=== PATIENT | female | born 1990 | race Caucasian/White ===

== ENCOUNTER 2016-10-17 21:24 | Emergency (ER) | payer MEDICAID, OTHER ==
[~2016-10-17] VITALS: Ht 160 cm; Wt 83.0 kg
[2016-10-17 21:31] VITALS: Ht 160 cm; Wt 83.0 kg
--- NOTE | 2016-10-17 22:23 | ERD ---
ER Documentation Chief Complaint Date/Time DATE: 10/17/16 TIME: 22:21 Chief Complaint 5 weeks , vag bleeding since last night HPI 26-year-old female presents here in emergency department for complaints of vaginal bleeding started last night, describes the bleeding as spotting. Patient 's approximately 5 weeks . LMP 08/18/2016. Patient is complaining of pelvic a, cramping pain, for/10 scale, accompanying the symptoms. Is 2 para 0 0. Patient denies hematuria or dysuria. Patient denies any fever or chills. Patient denies any fever or chills. Patient denies any nausea or vomiting. ROS All systems reviewed and are negative except as per history of present illness. Medications Home Meds Active Scripts Acetaminophen* (Tylophen*) 500 Mg Capsule, 1 CAP PO Q6H Y for PAIN AND OR ELEVATED TEMP, #20 CAP Prov:BENEDICT VALDEZ WALLCOVERING TEXTURER 10/18/16 Cephalexin* (Keflex*) 500 Mg Capsule, 500 MG PO QID for 5 Days, CAP Prov:BENEDICT VALDEZ W[employer]COVERING TEXTURER 10/18/16 Reported Medications [none] Unknown Strength No Conflict Check 10/17/16 Allergies Allergies: Coded Allergies: No Known Allergy (Unverified , 10/17/16) PMhx/Soc Medical and Surgical Hx: pt denies Medical Hx, pt denies Surgical Hx Hx Alcohol Use: No Hx Substance Use: No Hx Tobacco Use: No FmHx Family History: No coronary disease, No diabetes, No other Physical Exam Vitals Vital Signs Date Time Temp Pulse Resp B/P Pulse Ox O2 Delivery O2 Flow Rate FiO2 10/17/16 21:31 97.6 71 20 122/80 100 Physical Exam GENERAL: The patient is well developed and appropriate for usual state of health, in no apparent distress. CHEST: Clear to auscultation bilaterally. There are no rales, wheezes or rhonchi. HEART: Regular rate and rhythm. No murmurs, clicks, rubs or gallops. No S3 or S4. ABDOMEN: Soft, nontender and nondistended. Good bowel sounds. No rebound or guarding. No gross peritonitis. No gross organomegaly or masses. No Rodney sign or McBurney point tenderness. BACK: No midline or flank tenderness. EXTREMITIES: Equal pulses bilaterally. There is no peripheral clubbing, cyanosis or edema. No focal swelling or erythema. Full range of motion. Grossly neurovascularly intact. NEURO: Alert and oriented. Cranial nerves 2-12 intact. Motor strength in all 4 extremities with 5/5 strength. Sensation grossly intact. Normal speech and gait. SKIN: There is no apparent rash or petechia. The skin is warm and dry. HEMATOLOGIC AND LYMPHATIC: There is no evidence of excessive bruising or lymphedema. No gross cervical, axillary, or inguinal lymphadenopathy. : Small amount of blood in the vaginal vault, no cervical motion tenderness or adnexal tenderness noted. Cervical os is closed Result Diagram: 10/17/160 Results 24 hrs Laboratory Tests Test 10/17/16 21:42 10/17/16 22:00 Urine Color LT. YELLOW Urine Clarity SLIGHTLY CLOUDY Urine pH 6.0 Urine Specific [place] >=1.030 Urine Ketones NEGATIVE Urine Nitrite NEGATIVE Urine Bilirubin NEGATIVE Urine Urobilinogen 0.2 E.U./dL Urine Leukocyte Esterase 1+ Urine Microscopic RBC 5-10/HPF Urine Microscopic WBC 5-10/HPF Urine Squamous Epithelial Cells MODERATE Urine Bacteria FEW Urine Hemoglobin 2+ Urine Glucose NEGATIVE% Urine Total Protein NEGATIVE White Blood Count 5.810^3/ul Red Blood Count 4.5910^6/ul Hemoglobin 11.4g/dl Hematocrit 36.9% Mean Corpuscular Volume 80.4fl Mean Corpuscular Hemoglobin 24.8pg Mean Corpuscular Hemoglobin Concent 30.9g/dl Red Cell Distribution Width 13.7% Platelet Count 93495^3/UL Mean Platelet Volume 10.2fl Neutrophils % 45.1% Lymphocytes % 44.9% Monocytes % 7.9% Eosinophils % 1.4% Basophils % 0.5% Nucleated Red Blood Cells % 0.0/100WBC Neutrophils # 2.610^3/ul Lymphocytes # 2.610^3/ul Monocytes # 0.510^3/ul Eosinophils # 0.110^3/ul Basophils # 0.010^3/ul Nucleated Red Blood Cells # 0.010^3/ul Beta HCG, Quantitative 86296.0mIU/ml PROCEDURE: ULTRASOUND OBSTETRICAL CLINICAL INDICATION: 26-year-old female with vaginal bleeding. TECHNIQUE: Multiple sonographic images of the pelvis were obtained. The images were reviewed on a PACS workstation. COMPARISON: None. FINDINGS: There is a focal area of abnormal echogenicity within the uterus measuring 2.9 x 3.4 x 2.7 cm suggestive of a fibroid. There is a single intrauterine gestation. The mean sac diameter is 1.17 cm. There is a pole present with a crown-rump length of 0.46 cm. This yields an estimated gestational age of 6 weeks and 0 days. The estimated date of delivery is June 12, 2017. Cardiac activity is present at 121 beats per minute. There is no evidence for free fluid. The right ovary was not visualized. The left ovary has a normal echotexture and measures 3.4 x 2.1 x 2.6 cm. There is normal flow to the left ovary No adnexal masses are noted. IMPRESSION: 1. Single viable intrauterine gestation of approximately 6 weeks 0 days. The estimated date of delivery is June 12, 2017. 2. Probable uterine fibroid. 3. The right ovary was not visualized. .Macriano Iniguez MD, MD Date Time Electronically viewed and signed by .Marciano Iniguez MD, MD on 10/17/2016 23:39 .M/ CC: BENEDICT VALDEZ W[employer]COVERING TEXTURER Procedures/MDM Medical Decision Making: Patients vaginal bleeding is most likely consistent of possible threatened . Patient also has a uterine fibroid may be causing also the symptoms. Patient does not show any evidence of hypovolemic shock. Patients hemoglobin and hematocrit is stable. There is low suspicion for ectopic . PREM results show a viable at 6 weeks with uterine fibroid BetaHCG Quantitative is appropriate for The patient is Rh+, does not need RhoGAM this time. There is no signs of symptoms of dehydration. There is low suspicion for sepsis. Patient appears well and is hemodynamically stable. She also has urinary tract infection and will be treated. No symptoms of pyelonephritis. Disposition: Home. Condition: Stable Restriction: Keflex, Tylenol Instructions: Patient is advised to do bed rest, avoid heavy lifting, and avoid having sex until cleared by OB doctor. Patient is advised to follow up with OB doctor or here at the ER in 48 hours for reevaluation of symptoms, repeat beta HCG quantitative and ultrasound. Patient is advised that is symptoms are worst, severe bleeding, dizziness, severe abdominal pain, fever, worst signs and symptoms to return to the emergency department immediately. Departure Diagnosis: Primary Impression: Vaginal bleeding Additional Impressions: UTI (urinary tract infection) Urinary tract infection type: acute cystitis Hematuria presence: without hematuria Qualified Code: N30.00 - Acute cystitis without hematuria Uterine fibroid Uterine leiomyoma location: unspecified location Qualified Code: D25.9 - Uterine leiomyoma, unspecified location Intrauterine Condition: Stable Patient Instructions: Understanding Urinary Tract Infections (UTIs), Uterine Fibroids, Vaginal Bleed in Additional Instructions: Patient is advised to do bed rest, avoid heavy lifting, and avoid having sex until cleared by OB doctor. Patient is advised to follow up with OB doctor or here at the ER in 48 hours for reevaluation of symptoms, repeat beta HCG quantitative and ultrasound. Patient is advised that is symptoms are worst, severe bleeding, dizziness, severe abdominal pain, fever, worst signs and symptoms to return to the emergency department immediately. BENEDICT VALDEZ NP Oct 17, 2016 22:23
[2016-10-17 23:01] LABS: ADD SCAN DIFF NO
[2016-10-17 23:05] LABS: BASOPHILS % 0.5 % (0.0-2.0); EOSINOPHILS # 0.1 10^3/ul (0.0-0.5); EOSINOPHILS % 1.4 % (0.0-7.0); HEMATOCRIT 36.9 % (37.0-47.0); HEMOGLOBIN 11.4 g/dl (12.0-16.0); LYMPHOCYTES # 2.6 10^3/ul (0.8-2.9); LYMPHOCYTES % 44.9 % (15.0-51.0); MEAN CORPUSCULAR HEMOGLOBIN 24.8 pg (29.0-33.0); MEAN CORPUSCULAR HGB CONC 30.9 g/dl (32.0-37.0); MEAN CORPUSCULAR VOLUME 80.4 fl (82.0-101.0); MEAN PLATELET VOLUME 10.2 fl (7.4-10.4); MONOCYTE # 0.5 10^3/ul (0.3-0.9); MONOCYTES % 7.9 % (0.0-11.0); NEUTROPHIL # 2.6 10^3/ul (1.6-7.5); NEUTROPHILS % 45.1 % (39.0-77.0); PLATELET COUNT 388 10^3/UL (140-415); RED BLOOD COUNT 4.59 10^6/ul (4.20-5.40); RED CELL DISTRIBUTION WIDTH 13.7 % (11.5-14.5); WHITE BLOOD COUNT 5.8 10^3/ul (4.8-10.8)
[2016-10-17 23:08] LABS: ADD UMIC YES; URINE BILIRUBIN (Dip) NEGATIVE (NEGATIVE); URINE BLOOD (Dip) 2+ (NEGATIVE); URINE COLOR LT. YELLOW (YELLOW); URINE GLUCOSE (Dip) NEGATIVE (NEGATIVE); URINE KETONES (Dip) NEGATIVE (NEGATIVE); URINE LEUKOCYTE ESTERASE (Dip) 1+ (NEGATIVE); URINE NITRITE (Dip) NEGATIVE (NEGATIVE); URINE TOTAL PROTEIN (Dip) NEGATIVE (NEGATIVE); URINE UROBILINOGEN (Dip) 0.2 E.U./dL (0.1-1.0)
[2016-10-17 23:19] LABS: SQUAMOUS EPITHELIAL CELL,UR MODERATE
[2016-10-17 23:20] LABS: BACTERIA,URINE FEW
--- NOTE | 2016-10-17 23:39 | RADRPT ---
PROCEDURE: ULTRASOUND OBSTETRICAL CLINICAL INDICATION: 26-year-old female with vaginal bleeding. TECHNIQUE: Multiple sonographic images of the pelvis were obtained. The images were reviewed on a PACS workstation. COMPARISON: None. FINDINGS: There is a focal area of abnormal echogenicity within the uterus measuring 2.9 x 3.4 x 2.7 cm sugges tive of a fibroid. There is a single intrauterine gestation. The mean sac diameter is 1.17 cm. The re is a pole present with a crown-rump length of 0.46 cm. This yields an estimated gestational age of 6 weeks and 0 days. The estimated date of delivery is June 12, 2017. Cardiac activity is present at 121 beats per minute. There is no evidence for free fluid. The right ovary was not visu alized. The left ovary has a normal echotexture and measures 3.4 x 2.1 x 2.6 cm. There is normal skyla w to the left ovary No adnexal masses are noted. IMPRESSION: 1. Single viable intrauterine gestation of approximately 6 weeks 0 days. The estimated date of del nahum is June 12, 2017. 2. Probable uterine fibroid. 3. The right ovary was not visualized. .Marciano Iniguez MD, MD Date Time Electronically viewed and signed by .Marciano Iniguez MD, on 10/17/2016 23:39 .M/
[2016-10-18] MEDS ORDERED: ACET500C5 PO (00:18)
[2016-10-18] MEDS ORDERED: CEPH-443 PO (00:18)
[2016-10-18 00:32] VITALS: BP 106/59; PULSE 63; RESP 16; TEMP 98.3
== END 2016-10-18 00:33 | disposition home or self-care (01) ==
LOC: FTE 21:24
DX: O20.9 Hemorrhage in early pregnancy, unspecified (principal); O23.41 Unspecified infection of urinary tract in pregnancy, first trimester; O34.11 Maternal care for benign tumor of corpus uteri, first trimester; R10.2 Pelvic and perineal pain; Z3A.01 Less than 8 weeks gestation of pregnancy
CPT/HCPCS: 36415; 76801; 81001; 81003; 84702; 85025; 86900; 86901; Z7502

== ENCOUNTER 2017-05-24 17:27 | Inpatient (IN) | payer MEDICAID ==
[~2017-05-24] VITALS: Ht 160 cm; Wt 97.7 kg
[~2017-05-24 17:27] MED LIST: ACET500C5 PO; CEPH-443 PO
[2017-05-24] MEDS: LACTATED RINGER'S 1,000 ML IV SCH ×3 (18:01→21:50)
[2017-05-24] MEDS ORDERED: LACTATED RINGER'S 1,000 ML IV ONE (20:00)
--- NOTE | 2017-05-24 20:45 | RADRPT ---
PROCEDURE: Obstetrical ultrasound for biophysical profile CLINICAL INDICATION: Biophysical profile. . TECHNIQUE: Obstetrical ultrasound of the uterus for biophysical profile. Transabdominal views are obtained. COMPARISON: 05/24/2017 FINDINGS: Single intrauterine gestation. Presentation: Cephalic. Placenta: Anterior. No evidence of placental abruption. No evidence of placenta previa. Small placental leak noted. breathing movement = 2/2 tone = 2/2 motion = 2/2 AVERY = 2/2 AVERY = 6 cm heart rate: 124 beats per minute IMPRESSION: Single intrauterine gestation. Biophysical profile 02/22 RPTAT: AADD .Garo Crawford MD, MD Date Time Electronically viewed and signed by .Garo Crawford MD, on 05/24/2017 20:45 .B/
--- NOTE | 2017-05-24 20:59 | HP ---
Date/Time of Note Date/Time of Note DATE: 05/24/17 TIME: 20:45 OB - History Hx of Present Free Text/Dictation 27y.o at 37w3d were sent for BPP and AVERY for oligohydramnios during APT at triage AVERY 6.8 BPP /8 rechecked after IV hudration AVERY still 6 Her OB requested to admit the patient of IOL by cervidil known to have submucosal leiomyoma on may 06 ultrasound at which showed efw 19% AC only 10% AVERY 11.1 Chief Complaint: low AVERY for IOL Estimated Due Date: Jun 11, 2017 : 2 Para: 0 Spontaneous : 0 Therapeutic : 0 Care: Good Care Ultrasounds: Normal mid trimester US Medical Complications: Genitourinary (submucous myoma) Past Family/Social History * Past Medical, Surgical, Family and Obstetric Histories reviewed from chart. Blood Type: B+ Rubella: immune RPR/VDRL: Negative GBS Status: Unknown HBsAG: Negative OB Admission Exam Physical Exam HEENT: WNL Heart: Rhythm Normal Lungs: Clear, Equal Abdomen: WNL Extremities: Normal Reflexes: Normal Cervical Dilatation: other Effacement: Other Station: Other Membranes: Intact Heart Rate: 140's Accelerations: Accelerations Present Decelerations: No Decelerations Varibility: Moderate Contractions on Admission: None OB Assessment/Plan Other Assessment: IUP 37w3d oligohydramnios Plan: Induction Induction Method: per Misoprostol Protocol SHAMIKA STACY MD May 24, 2017 20:55
[2017-05-24 21:40] VITALS: BP 136/74; PULSE 94; RESP 18
[2017-05-24] MEDS ORDERED: PREN-17 PO (21:43)
--- NOTE | 2017-05-24 21:58 | TRIAGE ---
OB Triage Datetime Report Generated by CPN: 05/24/2017 21:58 Datetime: 05/24/2017 21:49 Comments: LOC, PT SITTING UPRIGHT EATING DINNER Datetime: 05/24/2017 21:34 Comments: PT SITTING UPRIGHT EATING DINNER Datetime: 05/24/2017 19:17 Stage of : OB Triage Maternal Assessment Level of Consciousness: Fully Conscious Headache: Denies Blurred Vision: No Nausea/Vomiting: Denies Facial Edema: None Monitor Mode: External Quality: Mild Pattern: Normal: <= 5 Contractions in 10 Minutes Resting Tone Barnum: Relaxed Heart Rate FHR Baseline Rate: 130 Monitor Mode: External US FHR Baseline Changes: No Baseline Change Variability: Moderate 6-25 bpm Accelerations: 15X15 Decelerations: None Category: Category I Pain Assessment Pain Scale: 0 Pain Presence: None/Denies Pain Type: N/A Datetime: 05/24/2017 18:55 Stage of : OB Triage Maternal Assessment Level of Consciousness: Fully Conscious DTR's/Clonus: DTRs 1+ Headache: Denies Breath Sounds, Left: Clear and Equal Breath Sounds, Right: Clear and Equal Nausea/Vomiting: Denies RUQ Epigastric Pain: Denies Labor Evaluation Frequency: NONE Monitor Mode: External Resting Tone Barnum: Relaxed Heart Rate FHR Baseline Rate: 130 Monitor Mode: External US Variability: Moderate 6-25 bpm Accelerations: 15X15 Decelerations: None Category: Category I Pain Assessment Pain Scale: 0 Pain Presence: None/Denies Pain Type: N/A Pain Goal: 3 Vaginal Exam Membrane Status: Intact Datetime: 05/24/2017 18:08 Maternal Assessment Level of Consciousness: Fully Conscious DTR's/Clonus: DTRs 1+ Headache: Denies Blurred Vision: No Respiratory Effort: Unlabored Breath Sounds, Left: Clear and Equal Breath Sounds, Right: Clear and Equal Nausea/Vomiting: Denies RUQ Epigastric Pain: Denies Facial Edema: None Labor Evaluation Frequency: NONE Monitor Mode: External Resting Tone Barnum: Relaxed Heart Rate FHR Baseline Rate: 130 Monitor Mode: External US Variability: Moderate 6-25 bpm Accelerations: 15X15 Decelerations: None Category: Category I Pain Assessment Pain Scale: 0 Pain Presence: None/Denies Pain Type: N/A Pain Goal: 3 Vaginal Exam Membrane Status: Intact Datetime: 05/24/2017 17:00 Time of Arrival: 05/24/2017 17:00 EGA: 37.3 Arrived By: Ambulatory Arrived From: Other Unit in Hospital Chief Complaint: PT CAME IN FROM [facility] WITH ORDERS FOR IV HYDRATION AND TO REPEAT HER BPP AFTER 2 HR S FOR LOW AVERY 6.[address] [facility] Movement: Present Contractions: Denies/Absent Rupture of Membranes: Denies Vaginal Discharge: Denies Recent Sexual Intercouse: Denies Abdominal Trauma: Not Applicable Additional Patient Complaints: NONE Time Provider Notified: 05/24/2017 20:50 Provider Notified: Dr Tomlin Initial Plan: NST AND BPP, IV HYDRATION
[2017-05-24] MEDS ORDERED: MISOPROSTOL 200 MCG TAB PR PRN (22:00)
[2017-05-24] MEDS ORDERED: BUTORPHANOL 2 MG INJ IV PRN (22:00)
[2017-05-24] MEDS ORDERED: METHYLERGONOVINE 0.2 MG INJ IM PRN (22:00)
[2017-05-24] MEDS ORDERED: DINOPROSTONE 10 MG VAG SUPP VAG ONE (22:00)
[2017-05-24] MEDS ORDERED: OXYTOCIN 30 UNITS/LR 500 ML IV PRN (22:00)
[2017-05-24] MEDS ORDERED: OXYTOCIN 30 UNITS/LR 500 ML IV SCH ×2 (22:00)
[2017-05-24] MEDS ORDERED: LIDOCAINE 1% (MPF) 30 ML INJ INJ PRN (22:00)
[2017-05-24] MEDS ORDERED: MINERAL OIL LIGHT 10 ML VIAL TOP PRN (22:00)
[2017-05-24] MEDS ORDERED: CARBOPROST 250 MCG INJ IM PRN (22:00)
[2017-05-24] MEDS ORDERED: IBUPROFEN 600 MG TAB PO PRN (22:00)
[2017-05-24 22:13] LABS: BASOPHILS % 0.3 % (0.0-2.0); EOSINOPHILS # 0.1 10^3/ul (0.0-0.5); HEMOGLOBIN 12.4 g/dl (12.0-16.0); LYMPHOCYTES # 2.6 10^3/ul (0.8-2.9); LYMPHOCYTES % 44.1 % (15.0-51.0); MEAN CORPUSCULAR HEMOGLOBIN 28.8 pg (29.0-33.0); MEAN CORPUSCULAR HGB CONC 34.4 g/dl (32.0-37.0); MEAN CORPUSCULAR VOLUME 83.5 fl (82.0-101.0); MEAN PLATELET VOLUME 10.6 fl (7.4-10.4); MONOCYTE # 0.4 10^3/ul (0.3-0.9); MONOCYTES % 7.5 % (0.0-11.0); NEUTROPHIL # 2.8 10^3/ul (1.6-7.5); NEUTROPHILS % 46.8 % (39.0-77.0); PLATELET COUNT 231 10^3/UL (140-415); RED BLOOD COUNT 4.31 10^6/ul (4.20-5.40); RED CELL DISTRIBUTION WIDTH 13.2 % (11.5-14.5); WHITE BLOOD COUNT 5.9 10^3/ul (4.8-10.8)
[2017-05-24 22:26] LABS: INR 0.91; PARTIAL THROMBOPLASTIN TIME 29.7 Sec (25.0-35.0); PROTIME 12.2 Sec (12.2-14.2)
[2017-05-24] MEDS ORDERED: AMPICILLIN 2 GM/NS (PMX) 100 ML IVPB ONE (23:00)
[2017-05-24] MEDS ORDERED: LACTATED RINGER'S 1,000 ML IV PRN (23:00)
[2017-05-24 23:26] LABS: BARBITURATES Negative (NEGATIVE); BENZODIAZEPINES Negative (NEGATIVE); CANNABINOIDS Negative (NEGATIVE); COCAINE Negative (NEGATIVE); OPIATES Negative (NEGATIVE)
[2017-05-25] MEDS ORDERED: AMPICILLIN 1 GM/NS (PMX) 50 ML IVPB ONE (04:00)
[2017-05-25] MEDS: LACTATED RINGER'S 1,000 ML IV SCH ×3 (06:34→20:52)
[2017-05-25] MEDS ORDERED: AMPICILLIN 1 GM/NS (PMX) 50 ML IVPB SCH (08:00)
[2017-05-25] MEDS ORDERED: DINOPROSTONE 10 MG VAG SUPP VAG ONE (10:00)
[2017-05-25] MEDS ORDERED: FENTAnyl 2MCG/ML-ROPIV 0.2% 100 ML ONE (14:06)
[2017-05-25] MEDS ORDERED: ONDANSETRON 4 MG INJ IV PRN (16:00)
[2017-05-25] MEDS ORDERED: DIPHENHYDRAMINE 50 MG INJ IV PRN (16:00)
[2017-05-25] MEDS ORDERED: FENTAnyl 2MCG/ML-ROPIV 0.2% 100 ML BAG EPI SCH (16:00)
[2017-05-25] MEDS ORDERED: TRIMETHOBENZAMIDE 100 MG/ML VIAL IM PRN (16:00)
[2017-05-25] MEDS ORDERED: NALOXONE (0.4 MG/ML) INJ IV PRN (16:00)
[2017-05-25] MEDS ORDERED: OXYTOCIN 30 UNITS/LR 500 ML IV SCH (17:30)
[2017-05-26] VITALS (7 sets, daily range): BP systolic 114–126; BP diastolic 55–86; PULSE 76–95; RESP 16–18
[2017-05-26] MEDS ORDERED: LACTATED RINGER'S 1,000 ML IV* SCH (00:23)
--- NOTE | 2017-05-26 00:23 | LDN ---
Date/Time of Note Date/Time of Note DATE: 05/26/17 TIME: 00:20 Delivery Summary 05/25/2017 Weeks of Gestation 37 weeks and 4 days Placenta Delivered: Spontaneously Meconium: none Episiotomy: No Perineal laceration: 2 Laceration repair: There was a 3 x4 cm submucosal calcified fibroid noted Placenta delviered spontanously. Due to breaking the cord and in order to ensure the placenta delivered complete, manual evaluation of the uterine cavity done and fibroid noted as above Placenta reevaluated , appeared to be complete. no evidence of retained POC noted. Anesthesia type: Epidural Sponge & Needle done & correct: Yes All needle counts correct: Yes Any foreign bodies felt in the: No Problems: Delivery Information Sex Infant Sex: female Apgars 1 Minute: 8 5 Minute: 9 Suctioning Nose & mouth suctioned at reji: Yes Delee suction performed: Yes Umbilical Cord Umbilical cord with: 3 Vessels Cord presentations: no nuchal cord Cord Blood was obtained: Yes Mother & Baby Disposition Disposition SGA Oligohyramnios ALFRED CHAHAL MD May 26, 2017 00:23
[2017-05-26] MEDS ORDERED: LANOLIN 7 GM TUBE TOP PRN (00:30)
[2017-05-26] MEDS ORDERED: MISOPROSTOL 200 MCG TAB PR PRN (00:30)
[2017-05-26] MEDS ORDERED: OXYTOCIN 30 UNITS/LR 500 ML IV PRN (00:30)
[2017-05-26] MEDS ORDERED: METHYLERGONOVINE 0.2 MG INJ IM PRN (00:30)
[2017-05-26] MEDS ORDERED: WITCH HAZEL/GLYCERIN PAD PR PRN (00:30)
[2017-05-26] MEDS ORDERED: ACETAMINOPHEN 325 MG TAB PO PRN (00:30)
[2017-05-26] MEDS ORDERED: ONDANSETRON 4 MG INJ IV PRN (00:30)
[2017-05-26] MEDS ORDERED: DIPHENHYDRAMINE 25 MG CAP PO PRN (00:30)
[2017-05-26] MEDS ORDERED: CARBOPROST 250 MCG INJ IM PRN (00:30)
[2017-05-26] MEDS ORDERED: ZOLPIDEM 5 MG TAB PO PRN (00:30)
[2017-05-26] MEDS: IBUPROFEN 600 MG TAB PO SCH ×4 (05:32→23:32)
--- NOTE | 2017-05-26 09:28 | PN ---
Date/Time of Note Date/Time of Note DATE: 05/26/17 TIME: 09:25 OB Subjective Subjective Subjective Post day 1 Doing Well Afebrile Ambulatory Chest Clear Breasts are soft , Nipples are intact Abdomen is soft Fundus is firm Moderate amount of lochia No evidence of infection No calf tenderness No ankle edema 2ed degree laceration of peritoneum is healing Laboratory Tests Test 05/25/17 22:27 HIV (1&2) Antibody NEGATIVE Current Medications Medications (Trade) Dose Ordered Sig/Matt Route PRN Reason Start Time Stop Time Status Last Admin Dose Admin Lactated Ringer's 1,000 ml @ 20 mls/hr Q24H IV 05/24/17 18:00 05/24/17 21:50 DC 05/24/17 19:26 Lactated Ringer's 1,000 ml @ 1,000 mls/hr Q1H ONCE IV 05/24/17 20:00 05/24/17 20:59 DC Lactated Ringer's (Lr) 1,000 ml @ 125 mls/hr Q8H IV 05/24/17 20:00 05/26/17 00:27 DC 05/25/17 20:52 Dinoprostone (Cervidil Vaginal Supp) 10 mg ONCE ONCE VAG 05/24/17 22:00 05/24/17 22:01 DC 05/24/17 22:46 Butorphanol Tartrate (Stadol) 2 mg Q2H PRN IV PAIN 05/24/17 22:00 05/26/17 00:27 DC Lidocaine 30 ml 30 ml ONCE PRN INJ EPISIOTOMY/TEARING 05/24/17 22:00 05/26/17 00:27 DC Oxytocin/Lactated Ringer's 500 ml @ 125 mls/hr ONCE -MAY REPEAT X1 IV 05/24/17 22:00 05/26/17 00:27 DC 05/25/17 22:28 Oxytocin/Lactated Ringer's 500 ml @ 125 mls/hr ONCE IV 05/24/17 22:00 05/26/17 00:27 DC Ibuprofen 600 mg 600 mg ONCE PRN PO Mild Pain (Pain Score 1-3) 05/24/17 22:00 05/26/17 00:27 DC Lactated Ringer's 1,000 ml @ 2,000 mls/hr Q30M PRN IV PRE-EPIDURAL BOLUS 05/24/17 23:00 05/26/17 00:27 DC 05/25/17 13:38 Oxytocin/Lactated Ringer's 500 ml @ 0 mls/hr ONCE PRN IV For Hemorrhage Management 05/24/17 22:00 05/26/17 00:27 DC 05/25/17 17:28 Methylergonovine Maleate (Methergine) 0.2 mg ONCE PRN IM VAGINAL BLEEDING 05/24/17 22:00 05/26/17 00:27 DC Carboprost Tromethamine (Hemabate) 250 mcg ONCE PRN IM VAGINAL BLEEDING 05/24/17 22:00 05/26/17 00:27 DC Misoprostol (Cytotec) 1,000 mcg ONCE PRN SD VAGINAL BLEEDING 05/24/17 22:00 05/26/17 00:27 DC Mineral Oil 10 ml 10 ml PRN PRN TOP vaginal delivery 05/24/17 22:00 05/26/17 00:27 DC Ampicillin 50 ml @ 100 mls/hr ONCE ONCE IVPB 05/25/17 04:00 05/25/17 04:29 DC 05/25/17 03:59 Ampicillin 100 ml @ 100 mls/hr ONCE ONCE IVPB 05/24/17 23:00 05/24/17 23:59 DC 05/24/17 22:52 Ampicillin (Ampicillin 1 Gm/ NS (Pmx)) 50 ml @ 100 mls/hr Q4H IVPB 05/25/17 08:00 05/25/17 10:36 DC 05/25/17 08:03 Dinoprostone 10 mg 10 mg ONCE ONCE VAG 05/25/17 10:00 05/25/17 10:06 DC 05/25/17 10:17 Fentanyl/ Ropivacaine 100 ml @ ud STK-MED ONCE .ROUTE 05/25/17 14:06 05/25/17 14:07 DC Naloxone HCl (Narcan) 0.1 mg Q2M PRN IV FOR RESP RATE 8 OR LESS 05/25/17 16:00 05/26/17 00:27 DC Diphenhydramine HCl (Benadryl) 25 mg Q6H PRN IV ITCHING 05/25/17 16:00 05/26/17 00:27 DC Ondansetron HCl (Zofran Inj) 4 mg Q6H PRN IV NAUSEA AND/OR VOMITING 05/25/17 16:00 05/26/17 00:27 DC Trimethobenzamide HCl (Tigan) 200 mg Q6H PRN IM NAUSEA AND/OR VOMITING 05/25/17 16:00 05/26/17 00:27 DC Fentanyl/ Ropivacaine 100 ml 100 ml EPIDURAL INFUSION EPI 05/25/17 16:00 05/26/17 00:27 DC 05/25/17 20:12 Oxytocin/Lactated Ringer's 500 ml @ 0 mls/hr Q0M IV 05/25/17 17:30 05/26/17 00:27 DC Lactated Ringer's (Lr) 1,000 ml @ 125 mls/hr Q8H IV* 05/26/17 00:23 05/26/17 06:20 DC 05/26/17 02:29 Ibuprofen (Motrin) 600 mg Q6 PO 05/26/17 06:00 05/26/17 05:32 Ondansetron HCl (Zofran Inj) 4 mg Q6H PRN IV NAUSEA AND/OR VOMITING 05/26/17 00:30 Diphenhydramine HCl (Benadryl) 25 mg Q6H PRN PO PRURITUS 05/26/17 00:30 Zolpidem Tartrate (Ambien) 5 mg QHS PRN PO INSOMNIA 05/26/17 00:30 Senna/Docusate Sodium (Senokot-S) 1 tab BID PO 05/26/17 09:00 Witch Janice/ Glycerin (Tucks Pads) 1 pad BEDSIDE MEDICATION PRN SD HEMORRHOID/EPISIOTMY PAIN 05/26/17 00:30 05/26/17 02:30 Lanolin (Rgj-L-Ahbyrk) 1 applic BEDSIDE MEDICATION PRN TOP BEDSIDE FOR JENNI TO NIPPLES 05/26/17 00:30 05/26/17 02:30 Measles/Mumps/ Rubella Vaccine Live (Mmr Ii Vaccine) 0.5 ml ONCE ONCE SC* 05/28/17 09:00 05/28/17 09:01 Diphtheria/ Tetanus/Acell Pertussis (Adacel) 0.5 ml ONCE ONCE IM* 05/28/17 09:00 05/28/17 09:01 Varicella Virus Vaccine Live (Varivax Vaccine With Diluent) 1,350 unit ONCE ONCE SC* 05/28/17 09:00 05/28/17 09:01 Acetaminophen 650 mg 650 mg Q4H PRN PO ELEVATED TEMPERATURE 05/26/17 00:30 Oxytocin/Lactated Ringer's 500 ml @ 0 mls/hr ONCE PRN IV For Hemorrhage Management 05/26/17 00:30 Methylergonovine Maleate (Methergine) 0.2 mg ONCE PRN IM VAGINAL BLEEDING 05/26/17 00:30 Carboprost Tromethamine (Hemabate) 250 mcg ONCE PRN IM VAGINAL BLEEDING 05/26/17 00:30 Misoprostol (Cytotec) 1,000 mcg ONCE PRN SD VAGINAL BLEEDING 05/26/17 00:30 Influenza Virus Vaccine (Fluzone) 0.5 ml ONCE ONCE IM* 05/27/17 09:00 05/27/17 09:01 New born is doing well, Breast feeding NELLIE GOLDEN MD May 26, 2017 09:28
[2017-05-26 10:32] LABS: HEMATOCRIT 30.4 % (37.0-47.0); HEMOGLOBIN 10.4 g/dl (12.0-16.0)
[2017-05-26] MEDS: SENNA/DOCUSATE NA (8.6MG/50MG) TAB PO SCH ×2 (12:17→23:32)
--- NOTE | 2017-05-26 22:34 | NSTRPT ---
NST Information Datetime Report Generated by CPN: 05/26/2017 22:34 Datetime: 05/24/2017 14:50 NST Information EGA: 37.3 Test Number: 10 Time on Monitor: 05/24/2017 15:45 Time off Monitor: 05/24/2017 16:18 NST Duration (Min): 33 Reason for NST: Other Reason for NST Other: Uterine Myoma, Grade III Placenta Test and Monitor Explained: Monitor Explained; Test Explained; Verbalized Understanding Pulse: 71 Resp: 18 SBP: 113 DBP: 68 Test Evaluation NST Interventions: PO Hydration; Reposition Patient; Acoustic Stimulation Patient States Movement: Present Contraction Frequency: NONE FHR Baseline : 120 Variability: Moderate 6-25bpm Accelerations: 15X15 Decelerations: None FHR Category: Category I NST Results: Reactive Comments: To u/s, AVERY 6.8cm, cephalic Perinatologist called and informed of AVERY 6.8cm, her recommendation is to send pt to OB Triage no w for IV hydration, then re-check AVERY. If AVERY does not increase, she recommends patient be delivered . Dr. Tomlin called and informed of perinatologist's recommendations. Orders received to send pt to OB Triage now for IV hydration, then re-check AVERY. Report called to Tatiana Eastman RN. POC explaine d to pt, pt verbalizes understanding and denies further quesitons. Electronically Signed By E-Signature: with User ID: [id number] Datetime: 05/20/2017 15:08 NST Information EGA: 36.6 NST Duration (Min): 26 Datetime: 05/17/2017 14:35 NST Information EGA: 36.3 NST Duration (Min): 32 Datetime: 05/13/2017 14:40 NST Information EGA: 35.6 NST Duration (Min): 23 Datetime: 05/10/2017 14:37 NST Information EGA: 35.3 NST Duration (Min): 25 Datetime: 05/06/2017 14:54 NST Information EGA: 34.6 NST Duration (Min): 25 Datetime: 05/02/2017 14:24 NST Information EGA: 34.2 NST Duration (Min): 40 Datetime: 04/29/2017 14:38 NST Information EGA: 33.6 NST Duration (Min): 32 Datetime: 04/26/2017 14:50 NST Information EGA: 33.3 NST Duration (Min): 27 Datetime: 04/22/2017 15:18 NST Information EGA: 32.6 Datetime: 04/22/2017 15:00 NST Duration (Min): 28
[2017-05-27 04:00] VITALS: BP 108/56; PULSE 83; RESP 18
[2017-05-27] MEDS: IBUPROFEN 600 MG TAB PO SCH ×2 (05:39→12:06)
[2017-05-27 07:45] VITALS: BP 124/59; PULSE 80; RESP 17
--- NOTE | 2017-05-27 08:20 | DS ---
Date/Time of Note Date/Time of Note DATE: 05/27/17 TIME: 08:20 Discharge Summary Admission/Discharge Info Admit Date/Time May 24, 2017 at 20:50 Discharge Date/Time Discharge Diagnosis term Patient Condition: Stable Hospital Course unrremarkable Home Meds Reported Medications Vit No.78/Iron/FA (Prenatabs FA Tablet) 1 Each Tablet, 1 EACH PO, TAB 05/24/17 Discontinued Reported Medications [none] Unknown Strength No Conflict Check 10/17/16 Discontinued Scripts Acetaminophen* (Tylophen*) 500 Mg Capsule, 1 CAP PO Q6H Y for PAIN AND OR ELEVATED TEMP, #20 CAP Prov:BENEDICT VALDEZ NP 10/18/16 Cephalexin* (Keflex*) 500 Mg Capsule, 500 MG PO QID for 5 Days, CAP Prov:BENEDICT VALDEZ NP 10/18/16 Primary Care Provider Care Physician No Primary Pending Labs Laboratory Tests Test 05/26/17 10:05 Hemoglobin 10.4g/dl (12.0-16.0) Hematocrit 30.4% (37.0-47.0) VITALIY HERNANDEZ MD May 27, 2017 08:20
--- NOTE | 2017-05-27 08:21 | PD.PPDC ---
WEBFED OFFSET PRESS OPERATOR Discharge Instruction Condition Patient Condition: Stable Diet Diet: Resume Regular Diet Wound/Drain Care Instructions Wound/Drain Care Instructions: Wash with soap and water Keep clean and dry Follow-up Follow-up with Physician: 3, Week/Weeks Return to clinic for LEAD DEVELOPER Instructions: Fever greater than 101 Chills Worsening abdominal pain Excessive Vaginal Bleeding More than 2 pads per hour Unable to tolerate diet OB Instructions: Breast Tenderness Depression Blurried Vision Headache Surgical Instructions: Incisional Drainage Incisional Redness VITALIY HERNANDEZ MD May 27, 2017 08:21
[2017-05-27] MEDS ORDERED: INFLUENZA VIRUS VACCINE 0.5 ML (DISPENSING) IM* ONE (09:00)
[2017-05-27] MEDS: SENNA/DOCUSATE NA (8.6MG/50MG) TAB PO SCH (09:24)
[2017-05-28] MEDS ORDERED: MEASLES,MUMPS,RUBELLA VACCINE INJ SC* ONE (09:00)
[2017-05-28] MEDS ORDERED: VARICELLA VACCINE LIVE/PF 1,350 UNIT/0.5 ML ML SC* ONE (09:00)
[2017-05-28] MEDS ORDERED: DIPHTH/TET/ACEL PERTUSS (ADULT) 0.5 ML VIAL IM* ONE (09:00)
== END 2017-05-27 12:40 | disposition home or self-care (01) | DRG 775 ==
LOC: OBT 17:27 → L-D 17:28 → OBT 20:50 → L-D 20:50 → PP1 05-25 23:58
PROVIDERS: ADMIT Obstetrics & Gynecology; ATTEND Obstetrics & Gynecology
PROC: 10E0XZZ Delivery of Products of Conception, External Approach (ICD-10-PCS; principal; 2017-05-25)
PROC: 0KQM0ZZ Repair Perineum Muscle, Open Approach (ICD-10-PCS; 2017-05-25)
PROC: 3E0P3VZ Introduction of Hormone into Female Reproductive, Percutaneous Approach (ICD-10-PCS; 2017-05-25)
DX: O70.1 Second degree perineal laceration during delivery (principal); Z37.0 Single live birth; Z3A.37 37 weeks gestation of pregnancy
CPT/HCPCS: 36415; 62319; 76818; 80307; 85014; 85018; 85025; 85610; 85730; 86592; 86703; 86803; 86900; 86901; 87340; 88307; 90686; 96360; 96361; 99464; G0463; J0290; J2590; J3010; J7120